=== PATIENT | female | born 1955 | race Caucasian/White ===

== ENCOUNTER 2016-12-23 13:59 | Observation (INO) | payer BC ==
[~2016-12-23] VITALS: Ht 162.6 cm; Wt 95.5 kg
[~2016-12-23 13:59] MED LIST: PREDNISONE50 MG PO; ZITHROMAX250 MG PO
[2016-12-23 15:18] LABS: MCH 29.1 PG (29.0-34.0); MCHC 32.8 G/DL (30.0-36.0); MCV 88.9 FL (83-99); MEAN PLAT.VOLUME 9.6 uM^3 (9.5-12.4); PLATELET COUNT 257 K/uL (156-360); RBC DIS.WIDTH-CV 12.9 % (11.8-14.6); RBC DIS.WIDTH-SD 42.3 % (39-53); RED BLOOD COUNT 4.05 M/uL (3.80-5.20); WHITE BLOOD COUNT 10.6 K/uL (4.1-10.2)
[2016-12-23 15:27] LABS: CHLORIDE 102 mEq/L (99-109); POTASSIUM 3.1 mEq/L (3.7-5.4); SODIUM 144 mEq/L (136-147)
[2016-12-23 15:29] LABS: GLUCOSE 115 mg/dL (70-99)
[2016-12-23 15:30] LABS: ANION GAP 10 MEQ/L (2-14)
[2016-12-23 15:33] LABS: GFR ESTIMATE (CALCULATED) > 59 mL/min/
[2016-12-23 15:34] LABS: INTER. NORMALIZED RATIO 1.1; PROTHROMBIN TIME 10.7 (9.2-11.2); UREA NITROGEN (BUN) 12 mg/dL (9-23)
[2016-12-23 15:38] LABS: TROP-I INTERPRETATION NEGATIVE; TROPONIN-I < 0.01 ng/mL (0.0-0.30)
[2016-12-23] MEDS ORDERED: ALPRAZOLAM0.5 MG PO (16:58)
[2016-12-23] MEDS ORDERED: FLUOXETINE HCL20 MG PO (16:59)
[2016-12-23] MEDS ORDERED: BUSPAR15 MG PO (16:59)
[2016-12-23] MEDS ORDERED: ZESTORETIC 20-1 EAC1 PO (17:00)
[2016-12-23] MEDS ORDERED: LEVOTHYROXINE112 MCG PO (17:00)
[2016-12-23] MEDS ORDERED: DESYREL 150 MG150 MG PO (17:00)
[2016-12-23] MEDS ORDERED: PANTOPRAZOLE SO40 MG PO (17:00)
[2016-12-23] MEDS ORDERED: ATORVASTATIN CA20 MG PO (17:04)
[2016-12-23] MEDS ORDERED: FORTAMET1000 M1 PO (17:05)
[2016-12-23] MEDS ORDERED: SPIRIVA RESPIMAT4 G1 IH (17:05)
[2016-12-23 17:14] VITALS: BP 173/60
[2016-12-23 17:14] LABS: D-DIMER ELISA 1.08 mg/L FEU (< 0.57)
[2016-12-23 17:36] LABS: POINT-OF-CARE METER ID UU13113831
[2016-12-23 20:20] VITALS: BP 178/86
[2016-12-23 21:31] LABS: POINT-OF-CARE METER ID UU13113831
[2016-12-23 22:02] LABS: TROP-I INTERPRETATION NEGATIVE; TROPONIN-I < 0.01 ng/mL (0.0-0.30)
[2016-12-23 23:52] LABS: ADD MIUA? YES; BILIRUBIN NEGATIVE; BLOOD NEGATIVE; COLOR YELLOW ((YELLOW)); GLUCOSE (STRIP) NEGATIVE; KETONES NEGATIVE; LEUKOCYTES SMALL; NITRITE NEGATIVE; PROTEIN (STRIP) NEGATIVE; SPECIFIC GRAVITY 1.016 (1.000-1.030); UROBILINOGEN 0.2 MG/DL (0.2-1.0)
[2016-12-24 00:03] LABS: BACTERIA RARE /HPF; EPITHELIAL CELLS RARE /HPF; MUCUS TRACE /LPF; RED BLOOD CELLS 15-20 /HPF (0-5); UCUL ADDED? NO
[2016-12-24 04:21] LABS: HEMATOCRIT 34.7 % (36.0-46.0); MCH 29.3 PG (29.0-34.0); MCHC 32.3 G/DL (30.0-36.0); MCV 90.8 FL (83-99); MEAN PLAT.VOLUME 9.6 uM^3 (9.5-12.4); PLATELET COUNT 239 K/uL (156-360); RBC DIS.WIDTH-CV 13.1 % (11.8-14.6); RBC DIS.WIDTH-SD 43.4 % (39-53); RED BLOOD COUNT 3.82 M/uL (3.80-5.20); WHITE BLOOD COUNT 9.8 K/uL (4.1-10.2)
[2016-12-24 04:29] VITALS: BP 151/63
[2016-12-24 04:31] LABS: CHLORIDE 101 mEq/L (99-109); POTASSIUM 3.7 mEq/L (3.7-5.4); SODIUM 141 mEq/L (136-147)
[2016-12-24 04:32] LABS: MAGNESIUM 1.6 mg/dL (1.3-2.7)
[2016-12-24 04:33] LABS: GLUCOSE 123 mg/dL (70-99)
[2016-12-24 04:34] LABS: ANION GAP 7 MEQ/L (2-14)
[2016-12-24 04:37] LABS: GFR ESTIMATE (CALCULATED) > 59 mL/min/
[2016-12-24 04:38] LABS: UREA NITROGEN (BUN) 10 mg/dL (9-23)
[2016-12-24 04:45] LABS: TROP-I INTERPRETATION NEGATIVE; TROPONIN-I < 0.01 ng/mL (0.0-0.30)
[2016-12-24 07:42] VITALS: BP 144/72
[2016-12-24] MEDS ORDERED: NICOTINE PATCH1 EAC2 TD (09:12)
[2016-12-24] MEDS ORDERED: ASPIR-LOW81 MG PO (09:12)
== END 2016-12-24 11:19 | disposition home or self-care (01) ==
LOC: EME 13:59 → 5WEST 16:02 → EDOF 16:02 → 5WEST 17:16
PROVIDERS: Emergency Medicine; Hospitalist; Nurse Practitioner Adult Health
DX: E87.6 Hypokalemia (principal); D72.829 Elevated white blood cell count, unspecified; I10 Essential (primary) hypertension; E11.9 Type 2 diabetes mellitus without complications; E78.5 Hyperlipidemia, unspecified; E66.9 Obesity, unspecified; Z68.36 Body mass index [BMI] 36.0-36.9, adult; J44.9 Chronic obstructive pulmonary disease, unspecified; Z82.49 Family history of ischemic heart disease and other diseases of the circulatory system; F17.200 Nicotine dependence, unspecified, uncomplicated; Z85.9 Personal history of malignant neoplasm, unspecified; Z80.0 Family history of malignant neoplasm of digestive organs; Z79.84 Long term (current) use of oral hypoglycemic drugs; Z88.5 Allergy status to narcotic agent
CPT/HCPCS: 71020; 71275; 80048; 81003; 82948; 83735; 83880; 84484; 85027; 85379; 85610; 85730; 93005; 93970; 94640; 99202; 99281; 99285; G0378; J1650; J1815; J3480; J7644; S0028